=== PATIENT | male | born 1940 | race Caucasian/White ===

== ENCOUNTER 2023-02-25 14:19 | Emergency (ER) | payer MEDICARE, OTHER, SELFPAY ==
[2023-02-25 14:20] VITALS: BP 178/103; PULSE 57; RESP 14; TEMP 36.5; BMI 23.7
[2023-02-25 14:26] VITALS: O2SAT 98
--- NOTE | 2023-02-25 14:41 | EDS_ITS ---
HPI History of Present Illness Chief Complaint: Headache Informant: patient Onset/Context/Timing Onset: Today Context: Sudden Timing: Continuous Quality -Headache: Positive for Throbbing Location: Frontal sinuses Worsened by: Movement Relieved by: Nothing Associated Symptoms/Injury Associated Symptoms: Positive for Nausea, Sinus Pressure and Blurred Vision; Negative for Fever, Vomiting, Sore Throat, Numbness, Tingling, Preceding Aura, Visual Changes, Photophobia or Visual Loss Injury - SILVA: Negative for Direct Trauma Narrative Narrative: Patient presents with headache, lightheadedness, dizziness that began today. Patient states this began approximately 12:30 PM today after he had been doing some yard work. Patient states it came on rather suddenly. Patient describes it as a throbbing. Patient states it is over the frontal sinuses. Patient states it is worse with movement. Patient admits to some nausea but denies any vomiting. Patient admits to some slight blurred vision. Patient states he felt like he was going to pass out. Patient states he did have some chills and some sweats. PFSH [facility] Medical History (Updated 02/25/23 @ 17:[address] Madhav Fiore DO) Brain tumor Home Medications amoxicillin 875 mg-potassium clavulanate 125 mg tablet 875 mg (0.875 x 875-125 mg) PO Q12H #20 TABLETS 02/25/23 [Rx Last Taken Unknown] Allergy/AdvReac Type Severity Reaction Status Date / Time ciprofloxacin [From Cipro] Allergy Mild Hives Verified 02/25/23 15:12 misc Allergy Mild Other Uncoded 02/25/23 15:12 Surgical History (Updated 02/25/23 @ 15:[address] Madhav Fiore DO) History of nephrectomy Hx of craniotomy Social History Smoking Status: Former smoker ROS ROS ED Constitutional Constitutional ED: Reports chills and sweats; Denies fever(s) Eyes Eyes: Denies blurry vision or change in vision ENT ENT ED: Denies rhinorrhea or sore throat Cardiovascular Cardiovascular: Denies chest pain or palpitations Respiratory/Chest Respiratory/Chest: Denies cough or dyspnea Gastrointestinal Gastrointestinal: Reports constipation and nausea; Denies vomiting Genitourinary Genitourinary ED: Denies dysuria or hematuria Musculoskeletal Musculoskeletal: Denies back pain or neck pain Integumentary Denies abscess or rash Neurologic Neurologic: Reports headache(s); Denies weakness Allergic/Immunologic Allergic/Immunologic ED: Denies mouth swelling or urticaria EXAM Physical Exam Const Vital Signs: 02/25/23 14:20 02/25/23 14:26 02/25/23 17:02 Temperature 97.7 F L Temperature Source Oral Pulse Rate 57 L Pulse Rate [Lying] 54 L Pulse Rate [Sitting (for 1 minute prior to obtaining)] 59 L Pulse Rate [Standing (for 1 minute prior to obtaining)] 65 Respiratory Rate 14 Blood Pressure 178/103 H Blood Pressure [Lying] 155/84 H Blood Pressure [Sitting (for 1 minute prior to obtaining)] 156/84 H Blood Pressure [Standing (for 1 minute prior to obtaining)] 153/89 H Blood Pressure Mean 128 Blood Pressure Mean [Lying] 107 Blood Pressure Mean [Sitting (for 1 minute prior to obtaining)] 108 Blood Pressure Mean [Standing (for 1 minute prior to obtaining)] 110 Pulse Ox 98 Oxygen Delivery Method Room Air Room Air 02/25/23 17:02 Temperature Temperature Source Pulse Rate 54 L Pulse Rate [Lying] Pulse Rate [Sitting (for 1 minute prior to obtaining)] Pulse Rate [Standing (for 1 minute prior to obtaining)] Respiratory Rate 16 Blood Pressure 155/84 H Blood Pressure [Lying] Blood Pressure [Sitting (for 1 minute prior to obtaining)] Blood Pressure [Standing (for 1 minute prior to obtaining)] Blood Pressure Mean 107 Blood Pressure Mean [Lying] Blood Pressure Mean [Sitting (for 1 minute prior to obtaining)] Blood Pressure Mean [Standing (for 1 minute prior to obtaining)] Pulse Ox 99 Oxygen Delivery Method Room Air Positive well nourished and well developed General Appearance ED: well developed and NAD HEENT Reports normocephalic and moist mucous membranes atraumatic; Negative for tenderness or temporal artery tenderness Eyes PERRL and EOMs intact bilaterally Eyes Narrative: Funduscopic examination was benign bilaterally. Neck supple and no JVD Resp normal respiratory effort and clear to auscultation bilaterally Cardio regular rate, regular rhythm and no murmurs GI normal to inspection, nondistended, normoactive bowel sounds and non-tender Palpation: soft Extremity normal to inspection General Extremety ED: Negative for edema or tenderness General Extremity: Negative for edema Neuro oriented x3, CN's II-XII intact bilaterally and no sensory deficits noted Sensorium / Orientation: awake and alert Speech: speech normal Motor Exam: strength 5/5 throughout Psych mental status grossly normal Skin no rashes or lesions noted MDM MDM MDM Narrative Medical decision making narrative: Differential diagnoses includes intracranial bleeding, sinusitis, migraine headache, tension headache, dehydration, lightheadedness, and vertigo. CT scan of the brain will be obtained to assess for intracranial bleeding. CBC will be obtained to assess for leukocytosis and anemia. Basic metabolic profile will be obtained to assess for electrolyte abnormality and renal function. Orthostatic vital signs will be obtained to assess for hydration status and hypovolemia. Lab Data Attestation: I reviewed the patient's lab results. Lab results narrative: CBC was reviewed and was within normal limits. Basic metabolic profile was reviewed and was within normal limits. Labs: Laboratory Results - last 24 hr 02/25/23 14:40 WBC 5.1 RBC 4.41 L Hgb 14.1 Hct 43.0 MCV 97.5 H MCH 32.0 MCHC 32.8 RDW Std Deviation 45.9 H RDW Coeff of Jorge Alberto 12.8 Plt Count 159 MPV 11.2 Immature Gran % (Auto) 0.200 Neut % (Auto) 66.3 Lymph % (Auto) 23.2 Colbert % (Auto) 9.3 Eos % (Auto) 0.6 Baso % (Auto) 0.4 Absolute Neuts (auto) 3.4 Absolute Lymphs (auto) 1.18 Nucleated RBC % 0 Sodium 139 Potassium 3.5 Chloride 105 Carbon Dioxide 26.0 Anion Gap 8 BUN 18 Creatinine 1.21 Estim Creat Clear Calc 55.67 Est GFR (MDRD) Af Amer 74 Est GFR (MDRD) Non-Af 61 BUN/Creatinine Ratio 14.9 Glucose 114 H Calcium 9.4 Radiography Diagnostic Testing: Clinical Impression(s) from Imaging Studies Brain CT 02/25/23 15:04 IMPRESSION: 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 No mass or acute bleed Bilateral frontal sinusitis likely chronic Electronically Signed: Elie Kiran MD at 16:11 EDT , CT scan of the brain was obtained. There are postsurgical changes in the frontal lobe. There is no acute bleed or mass noted. There is bilateral frontal sinusitis. This was interpreted by the radiologist and was also independently reviewed by myself. EKG Initial EKG: Attestation: I personally reviewed and interpreted this EKG as follows: Interpretation: Sinus Rhythm (With first-degree AV block with a rate of 56), No Acute Injury Pattern and RBBB Comments: EKG was obtained. On my independent interpretation, shows sinus bradycardia with a rate of 56 with a first-degree AV block. OR interval was 248 ms. QRS interval was slightly prolonged at 150 ms. QTc interval was 463 ms. There is borderline left axis deviation at -20. There are no acute ST or T wave changes. There is a right bundle branch block pattern noted. Prior EKG tracings: not available for review Prior: No Prior Treatment and Re-Evaluation Narrative: Patient was given Reglan and Benadryl. Patient states his headache is better on reevaluation. Orthostatic vital signs were obtained and were within normal limits. Patient was advised of his findings. Patient was advised that this is most likely a sinusitis. Patient was given a dose of Augmentin here. Patient was given a prescription for Augmentin. Patient was instructed to follow-up with his primary care physician in 5 to 7 days. Patient was instructed return if worse in any way. Patient understood and was agreeable with the plan. All questions were answered. Discharge Plan Triage Chief Complaint: Headache ED Provider: Madhav Fiore Dx/Rx/DC Orders Clinical Impression: Sinusitis, acute frontal Instructions: ED Sinusitis (Antibiotic Treatment) Prescriptions: New amoxicillin-pot clavulanate [amoxicillin-pot clavulanate] 875-125 mg tablet 875 mg PO Q12H Qty: 20 0RF Primary Care Provider: Toby Holden Referrals: Toby Holden MD [Primary Care Provider] - 5-7 Days [facility] Doctor,Out of [Non-Staff] - Disposition Disposition: Home, Self Care
--- NOTE | 2023-02-25 15:04 | CT_ITS ---
STUDY: CT BRAIN WITHOUT CONTRAST REASON FOR EXAM: Male, 82 years old. Headache WITH PRIOR MENIGIOMA SURGERY RADIATION DOSAGE (If Supplied By Facility): CTDIvol = ( 47.06 ) mGy, DLP = ( 890.33 ) mGycm TECHNIQUE: Transaxial CT imaging of the brain was performed without administration of intravenous contrast material. Individualized dose optimization techniques were used for this CT. COMPARISON: No relevant priors. FINDINGS: Normal soft tissue structures. Status post frontal craniotomy.. There is encephalomalacia in the right frontal lobe likely due to postsurgical changes, old infarct or prior trauma.. Normal white matter tracts of the cerebral hemispheres. Normal basal ganglia and thalami. Normal brainstem. Normal cerebellum. There is no intracranial hemorrhage. There are no findings of an acute ischemic infarction. Mucosal thickening of the frontal sinuses bilaterally more severe on the left. 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 No mass or acute bleed Bilateral frontal sinusitis likely chronic Electronically Signed: Elie Kiran MD at 16:11 EDT ,
[2023-02-25] MEDS: DiphenhydrAMINE 50 MG/ML Syringe 25 MG IV (15:14)
[2023-02-25] MEDS: Metoclopramide 10 MG/2 ML Vial IV (15:14)
[2023-02-25 15:30] LABS: Absolute Lymphocyte Count 1.18 X10^3/uL (0.83-4.51); Absolute Neutrophil Count 3.4 X10^3/uL (2.0-7.7); Basophil# 0.02 X10^3/uL; Basophil% 0.4 % (0-1); Eosinophil# 0.03 X10^3/uL; Eosinophils% 0.6 % (0-5); Hemoglobin 14.1 g/dL (13.0-16.5); Lymphocyte # 1.18 X10^3/ul (0.83-4.51); Lymphocyte % 23.2 % (19-41); Mean Corp Hgb Conc 32.8 g/dL (32-36); Mean Corpuscular Volume 97.5 fL (80-94); Mean Platelet Vol. 11.2 fl (6.2-12.0); Monocyte# 0.47 X10^3/uL; Monocyte% 9.3 % (0-10); NRBC Flagged by Analyzer 0 % (0-5); Neutrophil # 3.37 X10^3/uL (2.7-7.7); Neutrophil % 66.3 % (47-70); Platelet Count 159 K/mm3 (150-450); RBC Distribution Width CV 12.8 % (11.6-14.6); RBC Distribution Width SD 45.9 fl (35.1-43.9); Red Blood Count 4.41 M/mm3 (4.6-6.2); White Blood Count 5.1 K/mm3 (4.4-11.0)
[2023-02-25 15:35] LABS: Anion Gap 8 (5-15); BUN 18 mg/dL (7-18); BUN/Creat Ratio 14.9 RATIO (10-20); Calcium,Total 9.4 mg/dL (8.5-10.1); Chloride 105 mmol/L (98-107); Creatinine, Serum 1.21 mg/dL (0.70-1.30); EST Glomerular Filtration Rate 61 mL/min (>60); Est Glom Filt Rate - Afr Amer 74 mL/min (>60); Estimated Creatinine Clearance 55.67 ml/min; Glucose 114 mg/dL (74-106); Potassium 3.5 mmol/L (3.5-5.1); Sodium Level 139 mmol/L (136-145)
[2023-02-25 17:02] VITALS: BP 153/89; BP 155/84; BP 156/84; PULSE 54; PULSE 59; PULSE 65; RESP 16; O2SAT 99
[2023-02-25] MEDS: Amox/Clavulanate 875 MG Tablet PO (17:06)
== END 2023-02-25 17:37 | disposition home or self-care (01) ==
PROVIDERS: Emergency Provider Emergency Medicine; PCP Family Medicine; Visit Provider Emergency Medicine
DX: J01.10 Acute frontal sinusitis, unspecified (principal); Z87.891 Personal history of nicotine dependence
CPT/HCPCS: 70450; 80048; 85025; 93005; 96374; 96375; 99285; A4216